=== PATIENT | female | born 1945 | race Caucasian/White ===

== ENCOUNTER → 2016-11-24 | Outpatient (CLI) | payer MEDICARE, OTHER ==
[~2016-11-24] MED LIST: AMBIEN10 MG PO; AREDS PO; BACTRIM DS TABL1 TA1 PO; CENTRUM SILVER PO; DAKIN'S MODIF1000 ML EXT; DOXYCYCLINE HY100 M3 PO; FUROSEMIDE40 MG PO; HYDROCHLOROTH12.5 MG PO; HYDROCHLOROTHIA25 MG PO; KEFLEX500 MG PO; LEVAQUIN PO; LISINOPRIL-HCTZ1 T20 PO; NAPROXEN PO; NEURONTIN PO; PRINIVIL5 MG PO
--- NOTE | ~2016-11-24 | MY11 ---
[facility] A Service of [facility] [place] RADIOLOGY TEXT RESULTS PATIENT: FLOYD ALVARES LOCATION: [facility] : 43 UNIT #: [id number] AGE: [address]: Laci Soto MD SEX: F ORDER DR: [id number] [facility]. [place], [place] [address] [id number] O MR#: [id number] Acc #: [id number] NAME: FLOYD ALVARES. : 1945 SEX: F STUDY DATE/TIME: 11/24/2016 10:26 UNIT: [facility] ROOM: STUDY DESCRIPTION: MY Mammogram Screening Dig Akhil Attending Physician: Laci Soto M.D. Ordering Physician: Laci Soto M.D. Primary Care Physician: Laci Soto M.D. MEDICAL IMAGING REPORT This report is preliminary unless electronic signature is present EXAM Bilateral digital screening mammogram with CAD, 11/24/2016 HISTORY 71-year-old female with no personal or family history of breast cancer or current complaints. COMPARISON Bilateral diagnostic mammogram 06/13/2012. Bilateral digital screening mammogram 04/27/2010. FINDINGS CC and MLO views were obtained of each breast utilizing digital technique and reviewed with an FDA-approved CAD device. The breast parenchyma is predominantly fat replaced. Fibroglandular tissue is seen predominantly in the subareolar regions appears stable. No new or suspicious nodule is identified. Benign appearing intramammary lymph nodes within the upper outer right breast central third unchanged. Benign appearing calcifications right breast unchanged. No architectural distortion is seen. IMPRESSION Routine bilateral screening mammogram is recommended in one year. Patients over the age of 40 are entered into a reminder system with target due date for the next mammogram. A result letter will also be sent to the patient. BIRADS: 2 Benign Finding Dictated by... Yennifer Vasquez M.D. [facility] A Service [facility][1] RADIOLOGY TEXT RESULTS PATIENT: FLOYD ALVARES LOCATION: [facility] : 43 UNIT #: [id number] AGE: [address]: Laci Soto MD SEX: F ORDER DR: THIS IS AN ELECTRONICALLY VERIFIED REPORT Yennifer Vasquez M.D. at 11/24/2016 5:06 PM Osorio TD: 11/24/2016 11:27 JOB #: [id number] MEDICAL IMAGING REPORT Page 1 of 1 COPY
== END | disposition home or self-care (01) ==
LOC: CWCC 09:52
DX: Z12.31 Encounter for screening mammogram for malignant neoplasm of breast (principal)
CPT/HCPCS: G0202